=== PATIENT | female | born 1970 | race African-American/Black ===

== ENCOUNTER → 2024-12-20 12:19 | Outpatient (REF) | payer OTHER, SELFPAY | LOC: PAVMRI 12:19 | PROVIDERS: ATTENDING PHYSICIAN Podiatrist Foot & Ankle Surgery; FAMILY PHYSICIAN Family Medicine | DX: S00-T88 Injury, poisoning and certain other consequences of external causes (principal); M25.572 Pain in left ankle and joints of left foot | CPT/HCPCS: 73723; A9575 ==